=== PATIENT | male | born 1970 | race Caucasian/White ===

== ENCOUNTER 2017-10-31 09:11 | Outpatient (CLI) | payer BC ==
[2017-10-31 10:02] LABS: #Basophils 0.1 thou/uL (0.0-0.2); #Eosinphils 0.4 thou/uL (0.0-0.7); #Lymphocytes 1.8 thou/uL (1.20-3.40); #Monocytes 0.9 thou/uL (0.11-0.59); #Neutrophils 5.7 thou/uL (1.40-6.50); %Basophils 0.9 % (0.0-1.0); %Eosinophils 4.2 % (0.0-10.0); %Lymphocytes 20.4 % (21.0-51.0); %Monocytes 10.4 % (0.0-10.0); Hematocrit 43.5 % (42.0-52.0); Mean Platelet Volume 6.6 fL (7.4-10.4); Red Blood Cell (RBC) Count 4.75 mill/uL (4.70-6.10); White Blood Cell (WBC) Count 8.9 thou/uL (4.8-10.8)
[2017-10-31 10:26] LABS: Anion Gap 10 mmol/L (10-20); BUN (Urea Nitrogen) 17 mg/dL (8.9-20.6); Calc. Creatinine Clearance 0 mL/min (70-130); Calcium 11.7 mg/dL (7.8-10.44); Carbon Dioxide 29 mmol/L (22-29); Chloride 105 mmol/L (98-107); Estimated GFR-MDRD 73
--- NOTE | 2017-10-31 18:20 | EKG ---
Test Reason : Blood Pressure : / mmHG Vent. Rate : 073 BPM Atrial Rate : 073 BPM P-R Int : 142 ms QRS Dur : 090 ms QT Int : 372 ms P-R-T Axes : 036 -11 026 degrees QTc Int : 409 ms Normal sinus rhythm Normal ECG No previous ECGs available Confirmed by YANNI SARMIENTO ([id number]) on 10/31/2017 6:20:21 PM Referred By: SISI Confirmed By:YANNI SARMIENTO
== END 2017-10-31 09:12 | disposition home or self-care (01) ==
LOC: LABBT 09:11
PROVIDERS: ATTEND Specialist
DX: Z01.818 Encounter for other preprocedural examination (principal); K42.9 Umbilical hernia without obstruction or gangrene
CPT/HCPCS: 80048; 85025; 93005; 93010

== ENCOUNTER → 2017-11-03 | Day surgery (SDC) | payer BC ==
[2017-10-31 09:23] VITALS: BMI 34.7
[~2017-11-03] MED LIST: Bupivacaine/Epinephrine 0.25% 30 ML VIAL ONE; CEFAZOLIN/Water 2 GM/20 ML SYRINGE ONE; Dexamethasone 20 MG/5 ML VIAL ONE; Fentanyl 250 MCG/5 ML VIAL ONE; Glycopyrrolate 0.2 MG/ML 5 ML SYRINGE ONE; Ketorolac Tromethamine 30 MG/ML VIAL ONE; Levofloxacin 500 mg/D5W 100 ml Premix Bag ONE; Lidocaine 1% PF 5 ML VIAL ONE; Ondansetron HCl/PF 4 MG/2 ML Vial ONE; PHENYLEPHRINE-NS 100 MCG/ML 10 ML SYRINGE ONE; Propofol 200 MG/20 ML VIAL ONE
--- NOTE | 2017-11-04 11:45 | OP ---
DATE OF PROCEDURE: 11/03/2017 PREOPERATIVE DIAGNOSES: Bilateral inguinal hernia and small umbilical hernia. POSTOPERATIVE DIAGNOSES: Bilateral inguinal hernia and small umbilical hernia. OPERATION PERFORMED: Robotic bilateral inguinal hernia repair with ProGrip mesh patch, umbilical her cheng repair. SURGEON: Slim Cruz M.D. ANESTHESIA: General endotracheal. INDICATIONS: The patient is a moderately obese 47-year-old white male. He presents with palpable an d symptomatic bilateral inguinal hernias and is taken to the operating room at this time for repair. It is recognized that he has a smallish, but definitely present umbilical hernia that I have plan to address as well. DESCRIPTION OF OPERATION: Informed consent was obtained. The patient was taken to the operating [place] [facility] where general endotracheal anesthesia was obtained with the patient in supine position. Michel cath eter was placed. Abdomen was prepped with ChloraPrep and draped in sterile fashion. Local anestheti c was infiltrated and a 12-mm supraumbilical incision was created. Dissection was carried through sk in and subcutaneous tissue. The hernia defect was identified and a 12-mm port was passed through thi s defect. The robotic camera was passed through this port. Under direct vision, I placed 2 addition al 8-mm ports on either side of midline. The robot was docked to the ports and to the camera and the operation was continued from the robotic console. Inspection of the pelvis reveals the patient had bilateral direct inguinal hernias, both of pretty go od size. Operation was begun on the left. The peritoneum was incised transversely several centimete rs superior to the hernia defect. The dissection was carried out to the preperitoneal space inferior ly. To the medial aspect, identified and dissected the pubic tubercle and Jaziel's ligament. The pe ritoneum was dissected out of the hernia sac and fatty tissue was herniated through the defect was di ssected as well. The peritoneum was dissected off the spermatic vessels and the vas deferens. A lar ge space was cleared laterally for mesh placement. A mirror image dissection was carried out on the right. The patient's anatomy was symmetrical and th e hernia defect was also essentially the same size and location. When both sides had been cleared, t hen a 10 x 15 cm ProGrip mesh patch was obtained and placed first in the left preperitoneal space. T he medial aspect was positioned well medial to the pubic tubercle and the mesh was unfolded in the us ual fashion. Great care was taken to ensure that all fatty and peritoneal contents were superior and posterior to the posterior leaflet of the mesh. The mesh was fixed in place where it was quickly ad herent to the surrounding tissue. It was ensured that there was excellent overlap of the mesh in the area of the hernia. Once the mesh was well situated, the peritoneum was closed with a running sutur e of 3-0 Stratafix. Attention was then turned to the right side where the mirror image piece of mesh was obtained and pos itioned in the same fashion. Once it was positioned with appropriate overlap of the hernia defect, t he peritoneum was again closed with a Stratafix suture. There had been essentially no blood loss on either side. Using the camera through the lateral port s ite, the umbilical defect was closed with the GraNee needle and the 0 Vicryl suture in a [id number] [id number] fashion. This appeared to approximate the hernia defect appropriately. The lateral ports were r emoved under direct vision. Pneumoperitoneum was carefully evacuated. Quarter percent Marcaine with epinephrine was infiltrated in each port site. Skin edges were approximated with 4-0 Monocryl subcu ticular suture. Dermabond was placed externally. There were no complications. The patient tolerate d the procedure well and was taken to recovery room in stable condition.
== END ==
LOC: SDC 09:04
PROVIDERS: ATTEND Specialist
PROC: 0WQF4ZZ Repair Abdominal Wall, Percutaneous Endoscopic Approach (ICD-10-PCS; principal; 2017-11-03)
PROC: 0YUA4JZ Supplement Bilateral Inguinal Region with Synthetic Substitute, Percutaneous Endoscopic Approach (ICD-10-PCS; principal; 2017-11-03)
DX: K40.20 Bilateral inguinal hernia, without obstruction or gangrene, not specified as recurrent (principal); K42.9 Umbilical hernia without obstruction or gangrene; I10 Essential (primary) hypertension; E78.5 Hyperlipidemia, unspecified; G47.30 Sleep apnea, unspecified; F31.9 Bipolar disorder, unspecified; N52.9 Male erectile dysfunction, unspecified; E66.01 Morbid (severe) obesity due to excess calories; Z68.34 Body mass index [BMI] 34.0-34.9, adult; Z88.0 Allergy status to penicillin; Z98.890 Other specified postprocedural states; Z80.42 Family history of malignant neoplasm of prostate; Z82.49 Family history of ischemic heart disease and other diseases of the circulatory system; Z79.899 Other long term (current) drug therapy
CPT/HCPCS: S2900; J0131; J1100; J1885; J1956; J2001; J2405; J2704; J3010

== ENCOUNTER 2017-11-05 06:49 | Emergency (ER) | payer BC ==
[2017-11-05] MEDS ORDERED: Fleet Enema 133 ML BOT FS SCH (07:45)
[2017-11-05] MEDS ORDERED: Magnesium Citrate 300 ML BOT ONE (07:58)
--- NOTE | 2017-11-05 08:51 | RAD ---
2 VIEWS ABDOMEN: Date: 11/05/17 HISTORY: Constipation. Hernia repair done on . COMPARISON: None. FINDINGS: Scattered fecal material and air in a nondistended colon. No evidence of small bowel distention. No e vidence of pneumoperitoneum on the upright projection. No suspicious densities in the abdomen or pelv is. IMPRESSION: Nonspecific bowel gas pattern. POS: [facility]
== END 2017-11-05 09:35 | disposition home or self-care (01) ==
LOC: ERS 06:49
DX: K91.89 Other postprocedural complications and disorders of digestive system (principal); K59.09 Other constipation; E78.5 Hyperlipidemia, unspecified; I10 Essential (primary) hypertension; F31.9 Bipolar disorder, unspecified
CPT/HCPCS: 74020

== ENCOUNTER 2018-02-27 18:30 | Outpatient (CLI) | payer BC | END 2018-02-27 18:31 | disposition home or self-care (01) | LOC: SLEEPLAB 18:30 | PROVIDERS: ATTEND Family Medicine | DX: G47.10 Hypersomnia, unspecified (principal); E66.9 Obesity, unspecified; F31.9 Bipolar disorder, unspecified; I10 Essential (primary) hypertension; G47.33 Obstructive sleep apnea (adult) (pediatric); G47.31 Primary central sleep apnea; R06.83 Snoring | CPT/HCPCS: 95806 ==

== ENCOUNTER 2018-07-13 19:30 | Outpatient (CLI) | payer BC | END 2018-07-13 19:31 | disposition home or self-care (01) | LOC: SLEEPLAB 19:30 | PROVIDERS: ATTEND Family Medicine | DX: G47.33 Obstructive sleep apnea (adult) (pediatric) (principal); G47.10 Hypersomnia, unspecified; F31.9 Bipolar disorder, unspecified; E66.9 Obesity, unspecified; I10 Essential (primary) hypertension; Z68.35 Body mass index [BMI] 35.0-35.9, adult | CPT/HCPCS: 95811 ==

== ENCOUNTER 2019-06-04 12:50 | Outpatient (CLI) | payer BC ==
--- NOTE | 2019-06-04 13:42 | RAD ---
Exam: Right wrist 3 views: HISTORY: Right wrist sprain following an injury from a fall FINDINGS: Minimal soft tissue swelling at the level of the wrist. Probable hairline nondisplaced fracture of th e tip of the ulnar styloid process. Probable hairline fracture of the dorsal radial epiphysis. IMPRESSION: Probable nondisplaced fracture of the tip of the ulnar styloid process as well as the dorsal radial e piphysis. CODE T
--- NOTE | 2019-06-04 13:45 | RAD ---
Exam: Right forearm 2 views: HISTORY: Right wrist sprain following a fall and injury one week ago COMPARISON: Prior right wrist, 05/28/2019 FINDINGS: Questionable hairline fracture of the distal radius epiphysis and ulnar styloid process. Consider fol low-up CT scan for further assessment. CODE T
== END 2019-06-04 12:51 | disposition home or self-care (01) ==
LOC: BICRAD 12:50
PROVIDERS: ATTEND Family Medicine
DX: S63.501A Unspecified sprain of right wrist, initial encounter (principal)
CPT/HCPCS: 36415; 80061; 80076

== ENCOUNTER 2021-08-20 13:58 | Outpatient (CLI) | payer BC | END 2021-08-20 13:59 | disposition home or self-care (01) | LOC: BICRAD 13:58 | PROVIDERS: ATTEND Family Medicine | DX: M79.641 Pain in right hand (principal); S62.316A Displaced fracture of base of fifth metacarpal bone, right hand, initial encounter for closed fracture ==

== ENCOUNTER 2023-03-29 14:18 | Emergency (ER) | payer BC ==
[2023-03-29 15:20] LABS: #Basophils 0.1 thou/uL (0.0-0.2); #Eosinphils 0.1 thou/uL (0.0-0.7); #Lymphocytes 2.5 thou/uL (1.20-3.40); #Monocytes 0.8 thou/uL (0.11-0.59); #Neutrophils 5.5 thou/uL (1.40-6.50); %Basophils 1.1 % (0.0-1.0); %Eosinophils 1.4 % (0.0-10.0); %Lymphocytes 27.9 % (21.0-51.0); %Monocytes 8.7 % (0.0-10.0); %Neutrophils 60.9 % (42.0-75.0); Hemoglobin 15.2 g/dL (14.0-18.0); Mean Corpuscular Hemoglobin 30.3 pg (27.0-31.0); Mean Corpuscular Volume 91.7 fl (78.0-98.0); Mean Platelet Volume 7.2 fL (7.4-10.4); Platelet Count 375 10x3/uL (130-400); RBC Distribution Width 12.6 % (11.5-14.5)
[2023-03-29 15:38] LABS: Acetaminophen Less than 10.0 mcg/mL (10.0-30.0); Alcohol Less than 10 mg/dL (Less than 10); Salicylate Less than 8.0 mg/dL (15.0-30.0)
[2023-03-29 15:40] LABS: ALT (SGPT) 21 U/L (8-55); AST (SGOT) 22 U/L (5-34); Albumin 4.1 g/dL (3.5-5.0); Alkaline Phosphatase 68 U/L (40-110); Anion Gap 16 mmol/L (10-20); BUN (Urea Nitrogen) 20 mg/dL (8.4-25.7); Bilirubin, Total 0.5 mg/dL (0.2-1.2); Calc. Creatinine Clearance 0 mL/min (70-130); Calcium 9.9 mg/dL (7.8-10.44); Carbon Dioxide 24 mmol/L (22-29); Chloride 102 mmol/L (98-107); Estimated GFR 81; Glucose 84 mg/dL (70-105); Protein, Total 7.1 g/dL (6.0-8.3); Sodium 138 mmol/L (136-145)
[2023-03-29 16:02] LABS: Bilirubin Negative (Negative); Blood, Urine Negative (Negative); Clarity Clear (Clear); Glucose, Urine (Dipstick) Normal (Negative); Ketone, Urine Negative (Negative); Leukocyte Negative Leu/uL (Negative); Nitrite Negative (Negative); Protein, Urine (Dipstick) 20 mg/dL (Neg-Trace); Specific Gravity, Urine 1.031 (1.002-1.036); pH, Urine 7.5 (5.0-9.0)
[2023-03-29 16:11] LABS: Amphetamine Not Detected (NotDetected); Barbiturates Screen Not Detected (NotDetected); Benzodiazepine Screen Not Detected (NotDetected); Cocaine Metabolite Screen Not Detected (NotDetected); Methadone Not Detected (NotDetected); Methamphetamine Not Detected (NotDetected); Opiate Screen Not Detected (NotDetected); Oxycodone Screen Not Detected (NotDetected); Phencyclidine (PCP) Not Detected (NotDetected); THC/Cannabinoid Screen Not Detected (NotDetected); Tricyclic Screen Not Detected (NotDetected)
[2023-03-29] MEDS ORDERED: fentaNYL 50 mcg/mL 1 mL Vial ONE (16:33)
== END 2023-03-29 17:48 | disposition home or self-care (01) ==
LOC: ERS 14:18
DX: R55 Syncope and collapse (principal); F43.0 Acute stress reaction; E78.5 Hyperlipidemia, unspecified; I10 Essential (primary) hypertension; F17.210 Nicotine dependence, cigarettes, uncomplicated; Z79.899 Other long term (current) drug therapy
CPT/HCPCS: 36415; 51701; 70450; 71045; 72125; 80053; 80306; 80307; 81003; 83605; 84484; 85025; 93005; 94760; J3010

== ENCOUNTER 2025-08-06 08:20 | Emergency (ER) | payer BC ==
[2025-08-06 09:38] LABS: Bacteria/HPF None Seen HPF (None Seen); CAUTI Indications for Culture Pelvic or flank pain; Glucose, Urine (Dipstick) Normal (Negative); Leukocyte Negative Leu/uL (Negative); Protein, Urine (Dipstick) Negative (Neg-Trace); RBC/HPF None Seen HPF (0-3); Specific Gravity, Urine 1.006 (1.002-1.036); WBC/HPF 0-3 HPF (0-3)
[2025-08-06 09:42] LABS: Urine Culture Reflex No No
[2025-08-06 10:33] LABS: #Basophils 0.03 10x3/uL (0.0-0.2); #Eosinophils 0.07 10x3/uL (0.0-0.7); #Monocytes 0.56 10x3/uL (0.11-0.59); #Neutrophils 4.40 10x3/uL (1.40-6.50); %Basophils 0.5 % (0.0-1.0); %Eosinophils 1.1 % (0.0-10.0); %Lymphocytes 17.3 % (21.0-51.0); %Monocytes 9.1 % (0.0-10.0); %Neutrophils 71.8 % (42.0-75.0); Hematocrit 46.7 % (42.0-52.0); Hemoglobin 15.3 g/dL (14.0-18.0); Mean Corpuscular Hemoglobin 28.8 pg (27.0-31.0); Mean Corpuscular Volume 87.9 fL (78.0-98.0); Platelet Count 361 10x3/uL (130-400); Red Blood Cell (RBC) Count 5.31 mill/uL (4.70-6.10); White Blood Cell (WBC) Count 6.13 10x3/uL (4.8-10.8)
[2025-08-06 10:50] LABS: Cocaine Metabolite Screen Negative (Negative); THC/Cannabinoid Screen Negative (Negative); Tricyclic Screen Negative (Negative)
[2025-08-06 10:54] LABS: ALT (SGPT) 14 U/L (Less than 45); AST (SGOT) 21 U/L (11-34); Acetaminophen Less than 10 mcg/mL (Less than 10); Albumin 4.3 g/dL (3.1-4.5); Alkaline Phosphatase 62 U/L (40-110); Anion Gap 13 mmol/L (10-20); BUN (Urea Nitrogen) 9 mg/dL (8.4-25.7); Bilirubin, Total 0.5 mg/dL (0.3-1.2); Calc. Creatinine Clearance 0 mL/min (70-130); Calcium 10.4 mg/dL (7.8-10.44); Carbon Dioxide 24 mmol/L (22-29); Chloride 108 mmol/L (98-107); Globulin 3.0 g/dL (2.4-3.5); Glucose 92 mg/dL (70-105); Potassium 3.8 mmol/L (3.5-5.1); Salicylate Less than 8.0 mg/dL (Less than 8.0); Sodium 141 mmol/L (136-145)
== END 2025-08-06 17:52 ==
LOC: ERS 08:20
DX: F41.9 Anxiety disorder, unspecified (principal); F32.A Depression, unspecified; I10 Essential (primary) hypertension; F17.210 Nicotine dependence, cigarettes, uncomplicated
CPT/HCPCS: 36415; 80053; 80306; 80307; 81001; 84443; 85025; 99284

== ENCOUNTER 2025-10-03 21:50 | Emergency (ER) | payer BC ==
[2025-10-03] MEDS ORDERED: Ibuprofen 800 MG TAB ONE (22:39)
[2025-10-03] MEDS ORDERED: Boostrix 0.5 ML (Tdap) VIAL (>/=7 yrs of age) ONE (23:23)
== END 2025-10-04 00:40 | disposition home or self-care (01) ==
LOC: ERS 21:50
DX: S51.012A Laceration without foreign body of left elbow, initial encounter (principal); S63.502A Unspecified sprain of left wrist, initial encounter; I10 Essential (primary) hypertension; F17.290 Nicotine dependence, other tobacco product, uncomplicated; Z23 Encounter for immunization; W17.89XA Other fall from one level to another, initial encounter
CPT/HCPCS: 90471; 90715